=== PATIENT | female | born 1990 | race Caucasian/White ===

== ENCOUNTER 2021-10-01 16:10 | Outpatient (CLI) | payer OTHER, SELFPAY ==
[2021-10-01 16:24] VITALS: BP 115/76; PULSE 98
[2021-10-01 16:30] VITALS: BMI 34.7
[2021-10-01 16:45] VITALS: BP 118/73; PULSE 83
[2021-10-01 17:05] VITALS: BP 125/71; PULSE 85
[2021-10-01 17:20] VITALS: BP 125/71; PULSE 85
== END 2021-10-01 17:15 | disposition home or self-care (01) ==
LOC: OPOB 16:12 → OBGYN 16:13
PROVIDERS: Family Provider Family Medicine; PCP Family Medicine; Visit Provider Family Medicine
DX: O26.899 Other specified pregnancy related conditions, unspecified trimester (principal); Z3A.00 Weeks of gestation of pregnancy not specified; Z91.81 History of falling
CPT/HCPCS: 99211

== ENCOUNTER 2021-10-07 07:45 | Outpatient (CLI) | payer BC, MEDICAID, SELFPAY ==
--- NOTE | 2021-10-07 | US_ITS ---
WS: [id number] ULTRASOUND OB COMPLETE TECHNIQUE: Complete ultrasound. CLINICAL INFORMATION: MULTIGRAVIDA IN SECOND TRIMESTER COMPARISON: None. FINDINGS: Cervix measures 5.1 cm Single interuterine gestation is identified with transverse presentation. Placenta is anterior. Multiple prominent placental lakes visualized. Placenta grade 0. Normal amniotic fluid volume. cardiac activity: 143 BPM. AGA: 21 weeks 0 days JAIMIE by ultrasound: 2021 Estimated weight: 14 ounces BDP: 4.9 cm = 20w6d HC: 18.4 cm = 20w6d AC: 15.8 cm = 20w6d FEMUR LENGTH: 3.5 cm = 21w1d Anatomic survey: Anatomic survey is normal. Normal stomach. Kidneys and bladder are normal. Normal 3 vessel cord. Norm al 3 vessel cord insertion. Normal 4 chamber heart. Normal spine. Intracranial contents are normal. N ormal posterior fossa and cisterna magna. US/US OB >= 14 weeks fetus [id number] IMPRESSION: 1. Single intrauterine with visualized cardiac activity. AGA 21 week s 0 days with JAIMIE February 17, 2022. 2. Placenta is anterior with numerous prominent placental lakes. No evidence o f abruption or previa. 3. presentation is transverse. 4. anatomic survey is normal. 5. Normal amniotic fluid volume.
== END 2021-10-07 07:46 | disposition home or self-care (01) ==
PROVIDERS: PCP Family Medicine; Visit Provider Family Medicine
DX: Z34.82 Encounter for supervision of other normal pregnancy, second trimester (principal); Z3A.21 21 weeks gestation of pregnancy
CPT/HCPCS: 76805

== ENCOUNTER 2022-02-11 20:26 | Outpatient (CLI) | payer BC, MEDICAID, SELFPAY ==
[2022-02-11 20:38] VITALS: BMI 38.3
[2022-02-11 20:45] VITALS: BP 118/73; PULSE 93; RESP 16
[2022-02-11 21:46] VITALS: BP 107/68; PULSE 85
[2022-02-11 22:48] VITALS: BP 93/52; PULSE 82
[2022-02-11 23:16] VITALS: BP 119/87; PULSE 81
[2022-02-11 23:25] VITALS: BP 119/87; PULSE 81; RESP 16
== END 2022-02-11 23:26 | disposition home or self-care (01) ==
LOC: OPOB 20:35 → OBGYN 20:35
PROVIDERS: PCP Family Medicine; Visit Provider Family Medicine
DX: O26.899 Other specified pregnancy related conditions, unspecified trimester (principal); Z3A.00 Weeks of gestation of pregnancy not specified; R10.9 Unspecified abdominal pain
CPT/HCPCS: 59025; 99211

== ENCOUNTER 2022-02-18 21:48 | Inpatient (IN) | payer BC, MEDICAID, SELFPAY ==
[2022-02-18 20:47] VITALS: BP 143/73; PULSE 109
[2022-02-18 21:44] VITALS: RESP 15
[2022-02-18 22:00] VITALS: BMI 39.1
[2022-02-18 22:04] VITALS: BP 121/75; PULSE 93
[2022-02-18 22:10] LABS: Basophils % 0.1 %; Eosinophils # 0.1 10^3/uL (0.0-0.8); Eosinophils % 0.7 %; Hematocrit 30.6 % (37.0-47.0); Hemoglobin 9.5 g/dL (11.5-15.3); Lymphocytes # 1.4 10^3/uL (0.8-4.8); Mean Corpuscular Hemoglobin 25.1 pg (28.0-34.0); Mean Platelet Volume 10.1 fL (7.4-10.4); Monocytes # 0.6 10^3/uL (0.2-0.9); Monocytes % 6.3 %; Neutrophils # 6.96 10^3/uL (1.8-7.7); Neutrophils % 77.1 %; Nucleated Red Blood Cells # 0.1 /100WBC; Nucleated Red Blood Cells % 0.6 %; Platelet Count 244 10^3/cmm (130-400); Red Blood Count 3.78 10^6/uL (4.1-5.3); Red Cell Distribution Width 16.7 % (12.1-15.1)
[2022-02-18] MEDS: miSOPROStol 100 mcg tablet 25 MCG VAGINAL (22:22)
[2022-02-18 22:24] VITALS: BP 121/70; PULSE 95
[2022-02-18] MEDS: dextrose 5%-lactated ringers 1,000 ML 125 ML IV (22:34)
[2022-02-18 22:44] VITALS: BP 120/74; PULSE 91
[2022-02-18 23:04] VITALS: BP 128/78; PULSE 87
[2022-02-19] VITALS (71 sets, daily range): BP systolic 95–142; BP diastolic 50–87; PULSE 65–118; RESP 14–17; TEMP 36.4–36.9; O2SAT 97–100
[2022-02-19] MEDS: lactated ringers 1,000 ML 999 ML IV ×2 (01:57→02:58)
--- NOTE | 2022-02-19 03:43 | ANES.PREANE2 ---
Pre-Anesthetic Assessment Height/Weight: Height 1.55 m Weight 93.894 kg Pulse Resp BP Pulse Ox O2 Del Method 106 H 15 128/75 99 02/19/22 03:40 02/18/22 21:44 02/19/22 03:39 02/19/22 03:40 02/18/22 23:16 Preop Diagnosis: IUP Labor Epidural Familial anesthetic complications: None Was Beta Meaghan taken within 24 hours: N/A Was Clonidine taken within 24 hours: N/A Last intake: liquid: 1900 Solid: 1700 Social No alcohol and No tobacco Exam alert, oriented x 3, clear to auscultation bilaterally and regular rate & rhythm Airway Submandibular: within normal limits Cervical ROM: within normal limits Mallampati: Class III Dentition: full History/ROS No significant history except as noted Pulmonary None reported CV/HEM Anemia None reported Hepatic None reported GI Gastroesophageal Reflux Disease Metabolic Thyroid Disease (Hypothyroid on Levothyxine ) Musc/skel None reported Neuropsych None reported Anesthetic Plan ASA status: 2 Anesthesia: Anesthesia Evaluation, Eval. for regional block and Regional (specify below) (spinal) Risk of > 500 ml blood loss (7ml/kg in children): No Medications/Allergies Home Medications Medication Instructions Recorded Confirmed Last Taken Type levothyroxine 137 mcg tablet 137 mcg PO DAILY 02/11/22 02/18/22 02/17/22 History montelukast 10 mg tablet 10 mg PO DAILY 02/11/22 02/18/22 02/17/22 History (Singulair) vit no.95-ferrous 1 tab PO DAILY 02/11/22 02/18/22 02/17/22 History fumarate 28 mg-folic acid 800 mcg tablet () Allergies Allergy/AdvReac Type Severity Reaction Status Date / Time No Known Allergies Allergy Verified 02/11/22 21:01 Current Medications Generic Name Dose Route Start Last Admin Trade Name Freq PRN Reason Stop Dose Admin Dextrose/Lactated Ringer's 1,000 mls @ 125 mls/hr 02/18/22 21:45 02/18/22 23:16 Dextrose 5%-Lactated Ringers IV 0 mls/hr .Q8H DANG Infusion Ropivacaine 200 mg in 100 mls @ 13 mls/hr 02/18/22 21:45 02/19/22 03:41 Naropin Premix EPIDURAL 11 mls/hr .Q7H42M DANG Administration Lactated Ringer's 1,000 mls @ 999 mls/hr 02/18/22 21:43 02/19/22 02:58 Lactated Ringers IV 999 mls/hr .Q1H1M PRN Administration See label comments PFSH Anesthesia Female Reproductive History : 7 Data Anesthesia : 02/18/22 21:45 Short CBC 02/18/22 Range/Units 21:45 WBC 9.0 (4.0-10.0) 10^3/uL Hgb 9.5 L (11.5-15.3) g/dL Hct 30.6 L (37.0-47.0) % MCV 81.0 (81-99) fl Plt Count 244 (130-400) 10^3/cmm Neut % (Auto) 77.1 % Neut # (Auto) 6.96 (1.8-7.7) 10^3/uL Cardiac Studies: No Data to Display Anesthesia Procedures Epidural Time Out Performed: Yes Consents Signed: Procedure Consent Consent: requested by attending/covering physician, from patient, risks and benefits reviewed and patient agrees to proceed Lumbar Level: L4-L5 Epidural position: sitting Epidural procedure: sterile prep of area, 1% lidocaine to numb the area, 18 g needle, negative for paresthesia passed, neg for paresthesia, test dose given, 1.5% xylocaine 1:200k epi, placed PCEA, no systemic response, sterile dressing applied, L.U.D. no apparent complications and 0.2% Ropiavacaine @ mls/hr (11) Additional Comments: GLENDY 8cm
[2022-02-19] MEDS: oxytocin 30 UNIT/500 ML BAG IV (04:51)
--- NOTE | 2022-02-19 06:54 | PM.OPHPUD ---
Labor & Delivery H&P Update Date of Procedure: February 19, 2022 Date H&P Performed: 02/17/22 Changes to previous documentation: None Admission Diagnosis: Preop diagnosis: IUP Planned procedure: Vaginal delivery Other information: The patient is a 31-year-old 7 para 4-0-2-4 female at 40 weeks estimated gestational age presenting for induction. Her has been relatively unremarkable. She has hypothyroidism. With thyroid supplementation, she has been euthyroid during her . Her blood type is O+. Her antibody screen is negative. She is GBS negative. Her glucose screen was negative. The remainder of her lab infectious disease profile was within normal limits. She has been measuring 2 weeks ahead, and we discussed the risks of induction versus continued waiting. The patient expressed a desire for induction. Related Problem List Diagnoses (1) 40 weeks gestation of : A&P Assessment and plan (1) 40 weeks gestation of : We will proceed with induction. We will start induction with Cytotec 25 mcg per vagina. We will then consider Pitocin and/or amniotomy as needed. This time we anticipated vaginal delivery. Status: Acute
[2022-02-19] MEDS: ceFAZolin 2,000 MG in sodium chloride 0.9% (plus) 50 ML 100 MG IV (07:30)
--- NOTE | 2022-02-19 07:53 | PC.NURSE ---
Blood bank called at this time for 1 unit of PRBC, Blood bank states they will have one unit type and crossed to patient at this time and be done within the hour. BLANCA HUYNH
--- NOTE | 2022-02-19 08:28 | P.PCN_ITS ---
PACU note Narrative: VSS, Good respiratory effort, report to CABLE FERRY OPERATOR Exam: awake
--- NOTE | 2022-02-19 08:28 | PM.PACU ---
PACU note Narrative: VSS, Good respiratory effort, report to CELL COVERER Exam: awake
--- NOTE | 2022-02-19 08:29 | P.OP_ITS ---
Operative Report Date of procedure: February 19, 2022 Pre-op diagnosis: 1. 40-week gestation female 2. Nonreassuring heart tones 3. Excessive uterine bleeding from likely abruption Post-op diagnosis: Same. Probable abruption confirmed Procedure done: Transverse section Specimens removed/disposition: 1. Female with a weight of 9 pounds 2 ounces with Apgars of 3 and 9 2. Placenta with a three-vessel cord delivered intact. Large clot noted on the placenta. Surgeon: Garfield Loyola Estimated blood loss (mL): 800 Estimated blood loss: There was an estimated blood loss of 1500 mL of blood loss prior to surgery Brief History: I was contacted by the nurse caring for the patient concerned that the patient began to pass large clots and that the baby's heart tones had several decelerations. I arrived and confirmed with the nurses concerns. A stat C- section was called. Procedure: The patient was quickly brought back to the operating room where she was prepped and draped in usual sterile fashion. General anesthesia was formed performed. A lower transverse skin incision was then made with a #10 blade. I then dissected down to the underlying subcutaneous tissue until arriving at the prerectal fascia. The fascia was then nicked with the scalpel bilaterally. The fascial incisions were then carried laterally with Smalls scissors. Attention was then turned to the superior aspect of the incision which was grasped with kochers and tented up away from the underlying rectus abdominis muscles. The muscles were then dissected away from the fascia manually, and later with Smalls scissors. The rectus abdominis muscles were then spread manually. The peritoneum was entered manually. Excellent visualization of the uterus was noted. A lower transverse uterine incision was then made with a #10 blade. Upon arriving at the intrauterine cavity, the uterine incision was then extended manually. The infant was noted to be in vertex position. The baby was delivered without difficulty. There was no meconium. There was no nuchal cord. The cord was cut and clamped. The baby was then handed to Dr. Navarrete and the waiting nurses. The placenta was removed intact. The uterus was externalized. The intrauterine cavity was cleansed of any remaining debris. The uterine incision was reapproximated in 2 layers. The first layer was performed with 0 Vicryl in a running locked stitch. The second layer was an imbricating stitch also using 0 Vicryl. The uterus was replaced into the abdomen. The peritoneum was then irrigated with warm saline. I reexamined the uterine incision and found it to be hemostatic. The rectus abdominis muscles were then reapproximated using 0 Vicryl in a running stitch. The fascia was then reapproximated using 0 Vicryl in running stitch. The subcutaneous tissue was then reapproximated using 0 Vicryl in a running stitch. The skin was reapproximated using tony. A sterile dressing was placed. All counts were correct x2. Both the mother and baby were in stable condition. The patient demonstrated signs of hypovolemia including tachycardia and a low blood pressure during the procedure. Due to the large amount of blood loss prior to the procedure that was difficult to quantify, the decision was made to proceed with transfusion of a unit of blood.
[2022-02-19] MEDS: sodium chloride 0.9% (100 ml) 100 ML 50 ML (08:42)
--- NOTE | 2022-02-19 09:05 | PC.NURSE ---
pt to OB-12 from OR via bed. Oriented to room/call light. Discussed plan of clears at 6 hours post op, up to chair 4-6 hours post op.
--- NOTE | 2022-02-19 09:05 | PC.NURSE ---
Patient was assisted in placing infant skin to skin in a modified football hold. This IBCLC assisted patient with hand over hand to latch infant, educating on position related to breast position (nipple to nose), and bringing infant to the breast quickly. Adequate jaw movements were noted, and education on jaw movements was provided.
--- NOTE | 2022-02-19 10:10 | ANE.PACU2 ---
Inpatient post-anesthesia follow up: Airway intact: Yes Vital signs: Temperature 97.7 F Pulse Rate 84 Respiratory Rate 17 Blood Pressure 120/69 Pulse Oximetry 100 Oxygen Delivery Me thod Room Air Oxygen Flow Rate Fraction of Inspir ed Oxygen Hydration adequate: Yes Nausea and vomiting: No Pain level: 6 Mental status: Baseline Additional Comments: 100mcg of fentanyl given after assessing patient pain. patient states pain is better after administration
[2022-02-19] MEDS: docusate sodium 100 mg Capsule PO ×2 (10:30→19:08)
[2022-02-19] MEDS: levothyroxine 137 mcg Tablet PO (10:30)
[2022-02-19] MEDS: acetaminophen 1,000 MG/100 ML PIGGYBACK 400 MG IV (11:20)
[2022-02-19] MEDS: dextrose 5%-lactated ringers 1,000 ML 125 ML IV ×2 (11:20→20:24)
--- NOTE | 2022-02-19 12:17 | PC.NURSE ---
per Dr Loyola, EBL just prior to surgery 1500mL; EBL in surgery 800mL.
[2022-02-19] MEDS: ketorolac 30 mg/mL INJ IVP ×2 (13:51→20:24)
[2022-02-19 14:56] LABS: Hematocrit 28.4 % (37.0-47.0); Hemoglobin 8.7 g/dL (11.5-15.3); Mean Corpuscular HGB Conc 30.6 g/dL (30.0-36.0); Mean Corpuscular Hemoglobin 25.1 pg (28.0-34.0); Mean Corpuscular Volume 81.8 fl (81-99); Platelet Count 200 10^3/cmm (130-400); Red Blood Count 3.47 10^6/uL (4.1-5.3); Red Cell Distribution Width 16.4 % (12.1-15.1); White Blood Count 12.5 10^3/uL (4.0-10.0)
[2022-02-19] MEDS: ondansetron 2 mg/ML SDV 2 mL 4 MG IVP (15:40)
--- NOTE | 2022-02-19 16:00 | PC.NURSE ---
assisted pt up to chair at bedside, tolerated well. complete linen change and gown changed. clear liquids provided.
[2022-02-19] MEDS: ferrous sulfate EC 325 mg Tablet PO (19:08)
[2022-02-20 01:05] VITALS: BP 106/68
[2022-02-20] MEDS: ketorolac 30 mg/mL INJ IVP (02:39)
[2022-02-20 05:06] VITALS: BP 113/73; PULSE 72; RESP 16; TEMP 36.6; TEMP 36.7
[2022-02-20 05:09] LABS: Hematocrit 24.9 % (37.0-47.0); Hemoglobin 7.6 g/dL (11.5-15.3); Mean Corpuscular HGB Conc 30.5 g/dL (30.0-36.0); Mean Corpuscular Volume 81.9 fl (81-99); Mean Platelet Volume 9.9 fL (7.4-10.4); Platelet Count 174 10^3/cmm (130-400); Red Blood Count 3.04 10^6/uL (4.1-5.3); Red Cell Distribution Width 16.9 % (12.1-15.1); White Blood Count 9.9 10^3/uL (4.0-10.0)
--- NOTE | 2022-02-20 07:09 | PM.OBGYPN ---
MANAGER PERFORMANCE IMPROVEMENT Subjective Subjective: Interval history: The patient has had a good night overall. Her bleeding has been minimal. Her urine output is consistently been good. Her vitals have been good including a pulse has been consistently in the 70s. She has been breast-feeding well. Her pain is been well controlled. She passed flatus this morning. Labor: Station: -2 Amniotic Membrane Status: Ruptured Monitor Mode: External Contraction Pattern: Irregular Vitals/I&O/Wt Last Vital Signs Temp 98.0 F 02/20/22 05:06 Pulse 72 02/20/22 05:06 Resp 16 02/20/22 05:06 BP 113/73 02/20/22 05:06 Pulse Ox 100 02/19/22 11:20 O2 Del Method 02/19/22 11:20 02/19/22 02/20/22 02/20/22 22:59 06:59 14:59 Intake Total 1583.333 / 4630.333 Output Total 1100 / 5420 900 / 6320 Balance 483.333 / -789.667 -900 / -1689.667 Weight last 48 hrs Weight 207 lb Physical Exam Narrative: She is in no acute distress Lungs are clear auscultation bilaterally Her heart has a regular rate and rhythm Her fundus is below the umbilicus and firm Her dressing is clean, dry and intact Her extremities have trace edema Urinary Catheter Management: Cano: Cath Placed During This Visit: yes Reason for Continuing Indwelling Catheter: Required Immobilization for Trauma or Surgery or Anesthesia Urinary Catheter Date of Insertion: 02/19/22 Urinary Catheter Time of Insertion: 04:25 Data : 02/20/22 05:00 A&P Assessment and plan (1) 40 weeks gestation of : She is doing quite well. We are advancing her diet. We are going to have her be more mobile today. Her Cano has been removed. Her IV came out, and since her urine output and vitals have been excellent, I am not going to replace unless we see more concerns. (2) Status post : (3) Hemorrhage affecting : Her hemoglobin dropped appropriately today. It is clear she would require transfusion at some point having not done during the surgery given the fact that her hemoglobin posttransfusion is just above 7. Attestations Medical Necessity Statement*: If the patient continues to do well anticipate discharge in the morning. Coding Level of Care Code Acute Motorcycle Assembler for Chg Fwd Diagnoses 40 weeks gestation of Z3A.40 Status post Z98.891 Hemorrhage affecting O46.90
[2022-02-20] MEDS: docusate sodium 100 mg Capsule PO ×2 (08:19→18:01)
[2022-02-20] MEDS: HYDROcodone-acetaminophen 5-325 mg Tablet PO ×3 (08:19→18:01)
[2022-02-20] MEDS: levothyroxine 137 mcg Tablet PO (08:20)
[2022-02-20] MEDS: ferrous sulfate EC 325 mg Tablet PO ×2 (08:20→18:02)
[2022-02-20] MEDS: prenatal vitamin Capsule 1 CAP PO (08:20)
[2022-02-20] MEDS: ibuprofen 800 mg tablet PO ×3 (08:20→20:58)
[2022-02-20 12:00] VITALS: BP 130/72; PULSE 65; RESP 16; TEMP 36.7
--- NOTE | 2022-02-20 16:00 | PC.NURSE ---
Patient called out and stated that I don't feel good and I think I have a fever. Patient was visually uncomfortable and shaking. Patient rated her pain a 9/10 at this time. This nurse obtained vitals, had patient empty bladder, and palpated a soft abdomen. Incision was open to air and no drainage noted. Patient's lochia amount is small. Patient has no problems urinating. This nurse updated Dr. Loyola on patient's vitals, urine output, this nurse's patient assessment previously stated, and patient complaint. Order's received at this time for an additional 25mg dose of hydroxyzine NOW PO and a STAT CBC.
[2022-02-20] MEDS: acetaminophen 325 mg Tablet 650 MG PO (16:03)
[2022-02-20] MEDS: hyDROXYzine 25 mg Capsule 50 MG PO (16:04)
[2022-02-20 16:15] VITALS: BP 109/64; PULSE 120; RESP 22; TEMP 37
[2022-02-20 16:26] VITALS: BP 120/86; PULSE 114; RESP 22
[2022-02-20 16:56] LABS: Basophils % 0.3 %; Eosinophils # 0.1 10^3/uL (0.0-0.8); Eosinophils % 0.6 %; Hematocrit 25.5 % (37.0-47.0); Hemoglobin 7.8 g/dL (11.5-15.3); Lymphocytes % 8.9 %; Mean Corpuscular HGB Conc 30.6 g/dL (30.0-36.0); Mean Corpuscular Hemoglobin 25.2 pg (28.0-34.0); Mean Corpuscular Volume 82.5 fl (81-99); Mean Platelet Volume 9.7 fL (7.4-10.4); Monocytes # 0.6 10^3/uL (0.2-0.9); Monocytes % 5.1 %; Neutrophils # 9.01 10^3/uL (1.8-7.7); Neutrophils % 84.2 %; Nucleated Red Blood Cells % 0.2 %; Platelet Count 218 10^3/cmm (130-400); Red Blood Count 3.09 10^6/uL (4.1-5.3); Red Cell Distribution Width 17.2 % (12.1-15.1); White Blood Count 10.7 10^3/uL (4.0-10.0)
[2022-02-20 23:03] VITALS: BP 113/76; PULSE 84; RESP 17; TEMP 36.7; O2SAT 95
[2022-02-21 04:42] VITALS: BP 113/77; PULSE 82; RESP 18; TEMP 36.6; O2SAT 96
[2022-02-21] MEDS: docusate sodium 100 mg Capsule PO (07:42)
[2022-02-21] MEDS: HYDROcodone-acetaminophen 5-325 mg Tablet PO (07:42)
[2022-02-21] MEDS: prenatal vitamin Capsule 1 CAP PO (07:42)
[2022-02-21] MEDS: ibuprofen 800 mg tablet PO (07:42)
[2022-02-21] MEDS: ferrous sulfate EC 325 mg Tablet PO (07:42)
[2022-02-21] MEDS: levothyroxine 137 mcg Tablet PO (08:23)
--- NOTE | 2022-02-21 09:27 | P.DS_ITS ---
Discharge Providers REVENUE INSPECTOR Date of Admission: 02/18/22 21:48 Date of Discharge: 02/24/22 Attending Provider at Admission: Garfield Loyola MD Attending Provider at Discharge: Garfield Loyola MD Primary Care Provider: Garfield Loyola MD Diagnoses at Discharge Discharge Diagnosis (1) 40 weeks gestation of : Status: Resolved (2) Status post : Status: Resolved (3) Hemorrhage affecting : Status: Resolved Reason for Visit Reason for Visit: INDUCTION Hospital Course Hospital Course The patient presented to the hospital for induction. The patient was placed on Cytotec. An amniotomy was performed and found to have clear fluid. Approximately half hour after the amniotomy, the patient began bleeding with large clots. The heart tones demonstrated multiple deep decelerations. At that was performed. 1 unit of blood was given. The patient did very well . Her bleeding was minimal. She breast-fed well. She did have some moments where her pain was not well controlled, but we will do just her medication accordingly. She passed flatus and tolerated a regular diet Information Peripartum Data: Delivery Method: Physical Exam Narrative: She is in no acute distress Lungs are clear auscultation bilaterally Her heart has a regular rate and rhythm Her fundus is below the umbilicus and firm Her dressing is clean, dry and intact Her extremities have trace edema Urinary Catheter Management: Cano: Cath Placed During This Visit: yes Reason for Continuing Indwelling Catheter: Required Immobilization for Trauma or Surgery or Anesthesia Urinary Catheter Date of Insertion: 02/19/22 Urinary Catheter Time of Insertion: 04:25 Discharge Data Studies Completed and Pending Pending at discharge Category Date Time Status PRBC [Leukocyte Reduced RBC] Routine Lab 02/19/22 07:37 Results Type and Screen Routine Lab 02/19/22 07:37 Results Laboratory Results WBC 10.7 10^3/uL (4.0-10.0) H 02/20/22 16:42 RBC 3.09 10^6/uL (4.1-5.3) L 02/20/22 16:42 Hgb 7.8 g/dL (11.5-15.3) L 02/20/22 16:42 Hct 25.5 % (37.0-47.0) L 02/20/22 16:42 MCV 82.5 fl (81-99) 02/20/22 16:42 MCH 25.2 pg (28.0-34.0) L 02/20/22 16:42 MCHC 30.6 g/dL (30.0-36.0) 02/20/22 16:42 RDW 17.2 % (12.1-15.1) H 02/20/22 16:42 Plt Count 218 10^3/cmm (130-400) 02/20/22 16:42 MPV 9.7 fL (7.4-10.4) 02/20/22 16:42 Neut % (Auto) 84.2 % 02/20/22 16:42 Lymph % (Auto) 8.9 % 02/20/22 16:42 Garza % (Auto) 5.1 % 02/20/22 16:42 Eos % (Auto) 0.6 % 02/20/22 16:42 Baso % (Auto) 0.3 % 02/20/22 16:42 Neut # (Auto) 9.01 10^3/uL (1.8-7.7) H 02/20/22 16:42 Lymph # (Auto) 1.0 10^3/uL (0.8-4.8) 02/20/22 16:42 Garza # (Auto) 0.6 10^3/uL (0.2-0.9) 02/20/22 16:42 Eos # (Auto) 0.1 10^3/uL (0.0-0.8) 02/20/22 16:42 Baso # (Auto) 0.0 10^3/uL (0.0-0.1) 02/20/22 16:42 Nucleated RBC % (auto) 0.2 % 02/20/22 16:42 Nucleated RBCs # 0.0 /100WBC 02/20/22 16:42 Blood Type O Positive 02/18/22 21:45 Rho(D) Type Positive 02/18/22 21:45 Antibody Screen Negative 02/18/22 21:45 Crossmatch See Detail 02/18/22 21:45 Vitals Last Vital Signs Temp 97.8 F 02/21/22 04:42 Pulse 82 02/21/22 04:42 Resp 18 02/21/22 04:42 BP 113/77 02/21/22 04:42 Pulse Ox 96 02/21/22 04:42 O2 Del Method 02/21/22 04:42 Discharge Plan Discharge Patient Disposition: Home Condition: Stable Prescriptions: New ibuprofen 800 mg Tablet 800 mg PO TID Qty: 45 0RF hydrocodone-acetaminophen 5-325 mg Tablet 1 - 2 tab PO Q4H PRN (Reason: Moderate To Severe Pain) Qty: 28 0RF docusate sodium 100 mg Capsule 100 mg PO BID Qty: 14 0RF Continued levothyroxine 137 mcg Tablet 137 mcg PO DAILY PNV cmb#95-ferrous fumarate-FA [] 28 mg iron- 800 mcg Tablet 1 tab PO DAILY Discontinued montelukast [Singulair] 10 mg Tablet 10 mg PO DAILY Discharge Orders: Discharge Order (Routine); Ordered 02/21/22 Ordered By: Garfield Loyola Referrals: Garfield Loyola MD [Primary Care Provider] - 4-7 days Discharge Diet: Usual diet Discharge Activity: Limit activity as instructed Patient Instructions: Depression (DC), Bleeding (DC), Preeclampsia and Eclampsia After Delivery (GEN), Hemorrhage (DC), OB - Mariah, OB Discharge Report, OB Food/Drug Interaction Guide, OB Care at Home, Opioid Safety, OB Home Care Discharge Attestations REVENUE INSPECTOR Time Spent in Discharge Care*: less than 30 min Coding Level of Care Code Acute Temple Meat Cutter for Chg Fwd Diagnoses 40 weeks gestation of Z3A.40 Status post Z98.891 Hemorrhage affecting O46.90
[2022-02-21 10:02] VITALS: BP 118/69; PULSE 98; RESP 16; TEMP 36.9; O2SAT 99
[2022-02-21 10:51] VITALS: BP 118/69; PULSE 98; RESP 16; TEMP 36.9; O2SAT 99
== END 2022-02-21 10:51 | disposition home or self-care (01) | DRG 788 ==
LOC: OBGYN 23:05 → OPOB 03-01 08:24
PROVIDERS: Admitting Provider Family Medicine; PCP Family Medicine; Visit Provider Family Medicine
PROC: 10D00Z1 Extraction of Products of Conception, Low, Open Approach (ICD-10-PCS; CPT 59514; principal; 2022-02-19 07:15)
DX: O45.93 Premature separation of placenta, unspecified, third trimester (principal); O99.344 Other mental disorders complicating childbirth; F41.9 Anxiety disorder, unspecified; O48.0 Post-term pregnancy; Z3A.40 40 weeks gestation of pregnancy; O99.284 Endocrine, nutritional and metabolic diseases complicating childbirth; E03.9 Hypothyroidism, unspecified; O76 Abnormality in fetal heart rate and rhythm complicating labor and delivery; Z37.0 Single live birth
CPT/HCPCS: 12345; 36415; 36430; 51702; 59025; 85025; 85027; 86850; 86900; 86920; 90471; 90686; 96374; 96376; 98960; J0330; J1885; J2274; J2370; J2405; J2704; J2795; J3010; J7030; P9016

== ENCOUNTER 2022-07-09 18:48 | Emergency (ER) | payer BC, MEDICAID, SELFPAY ==
[2022-07-09 18:59] VITALS: BP 160/100; PULSE 81; RESP 18; TEMP 36.7; O2SAT 98
--- NOTE | 2022-07-09 20:15 | XRR_ITS ---
PROCEDURE INFORMATION: Exam: XR Chest Exam date and time: 07/09/2022 8:20 PM Age: 31 years old Clinical indication: Pain; Chest pressure; Additional info: HTN, chest pressure TECHNIQUE: Imaging protocol: Radiologic exam of the chest. Views: 1 view. COMPARISON: No relevant prior studies available. FINDINGS: Lungs: Visualized portions of the lungs are clear. Pleural spaces: Unremarkable. No pleural effusion. No pneumothorax. Heart/Mediastinum: Heart is within normal limits of size. Bones/joints: There is mild scoliosis thoracic spine concave to the left. XR/XR chest 1V portable [id number] IMPRESSION: No acute infiltrate.
--- NOTE | 2022-07-09 20:15 | ED_ITS ---
Documented by User: JACEY Ruvalcaba 07/09/22 22:35 HPI - Headache General: Chief Complaint: Headache Stated Complaint: high bp Time Seen by Provider: 07/09/22 20:08 History of Present Illness: 31-year-old female comes in today for persistent headache x2 weeks. Patient was seen at primary care office and was noted to have elevated blood pressure in the 140s. Primary care provider thought that the patient probably had elevated blood pressure causing her headache. She was started on Maxide for her blood pressure. Patient taken 1 dose of it. Since then patient felt like she had some chest discomfort and numbness in her right arm which prompted become more concerned and she came to the ER for evaluation. Patient has no history of hypertension or migraine headaches. Patient does take levothyroxine for hypothyroidism and control. Patient denies any cigarette smoking alcohol or drugs. Patient appears nontoxic. Patient appears in mild to no pain. Associated symptoms: Reports chest pain (Discomfort); Deny fever(s), nausea, rash or vomiting Review of Systems Const: Denies: fever(s) Eyes: Denies: change in vision ENMT: Denies: throat pain Card: Reports: chest pain (Discomfort) Resp: Denies: dyspnea GI: Denies: nausea or vomiting : Denies: difficulty voiding Musc: Denies: neck pain or back pain Skin/Breast: Denies: rash Neuro: Reports: headache(s) and dizziness (Lightheaded) Psych: Denies: depression PFS ED PFSH: Medical History Abscessed tooth Physical Exam Const: COMMON NORMALS: alert HENMT: COMMON NORMALS: normocephalic, TM's normal bilaterally and Normal external nose present HEAD & SCALP: normocephalic FACE & SINUS: no Facial tenderness on exam of face and sinuses NOSE: Normal external nose present TYMPANIC MEMBRANE: TM's normal bilaterally THROAT: posterior oropharynx abnormal cobblestoning (Mild) Neck/C-Spine: CERVICAL SPINE: Yes cervical ROM normal, No Cervical spine tenderness and No Paracervical muscle tenderness Resp: COMMON NORMALS: normal respiratory effort and clear to auscultation bilaterally AUSCULTATION: clear to auscultation bilaterally Cardio: COMMON NORMALS: regular rate and regular rhythm RATE: regular rate RHYTHM: regular rhythm Extremity: COMMON NORMALS: full ROM and no pedal edema Neuro: SENSORIUM/ORIENTATION: Yes alert Skin: COMMON NORMALS: turgor normal GENERAL SKIN EXAM: turgor normal Course Vital Signs: Vital signs: Vital Signs Temperature 98.1 F 07/09/22 18:59 Pulse Rate 88 07/09/22 22:35 Respiratory Rate 16 07/09/22 22:35 Blood Pressure 131/91 07/09/22 22:35 Pulse Oximetry 98 07/09/22 18:59 MDM - Headache Medical Decision Making Patient comes in today for complaints of persistent headache x2 weeks, lightheadedness, and numbness in the right arm. Patient was recently started on medications for elevated blood pressure. Patient appears nontoxic. Patient appears in mild to no pain. Vital signs note a blood pressure in the 160s systolic. Heart rates regular. Lung sounds are clear. No edema is noted. Differential diagnosis includes but not limited to migraine headache, hypertensive emergency, essential hypertension, sinusitis, anxiety. CBC and CMP were unremarkable. Patient did note to have some small corpuscle size probably suggestive of some mild iron deficiency. TSH was elevated in the 30s. CT of the head indicated no abnormalities. Patient was treated with Reglan, ketorolac, dexamethasone for headache with good results. Recommend continuing medication for blood pressure and follow-up with primary care. Patient stated understanding agreed to plan. Lab Data 07/09/22 20:28 07/09/22 20:28 Radiology Impressions Chest X-Ray 07/09/22 20:15 IMPRESSION: No acute infiltrate. Head CT 07/09/22 20:15 IMPRESSION: No acute intracranial abnormality. Laboratory Results WBC 7.5 10^3/uL (4.0-10.0) 07/09/22 20:28 RBC 5.63 10^6/uL (4.1-5.3) H 07/09/22 20:28 Hgb 12.1 g/dL (11.5-15.3) 07/09/22 20:28 Hct 41.3 % (37.0-47.0) 07/09/22 20:28 MCV 73.4 fl (81-99) L 07/09/22 20: MCH 21.5 pg (28.0-34.0) L 07/09/22 20:28 MCHC 29.3 g/dL (30.0-36.0) L 07/09/22 20: RDW 16.3 % (12.1-15.1) H 07/09/22 20: Plt Count 429 10^3/cmm (130-400) H 07/09/22 20: MPV 9.3 fL (7.4-10.4) 07/09/22 20: Neut % (Auto) 55.3 % 07/09/22 20: Lymph % (Auto) 36.0 % 07/09/22 20: [place] % (Auto) 5.6 % 07/09/22 20: Eos % (Auto) 2.1 % 07/09/22 20: Baso % (Auto) 0.9 % 07/09/22: Neut # (Auto) 4.15 10^3/uL (1.8-7.7) 07/09/22: Lymph # (Auto) 2.7 10^3/uL (0.8-4.8) 07/09/22 20: [place] # (Auto) 0.4 10^3/uL (0.2-0.9) 07/09/22 20: Eos # (Auto) 0.2 10^3/uL (0.0-0.8) 07/09/22 20: Baso # (Auto) 0.1 10^3/uL (0.0-0.1) 07/09/22 20: Nucleated RBC % (auto) 0 % 07/09/22 20: Nucleated RBCs # 0.0 /100WBC 07/09/22 20: ESR 27 mm/hr (0-15) H 07/09/22 20: Sodium 136 mmol/L (136-145) 07/09/22 20: Potassium 3.8 mmol/L (3.5-5.1) 07/09/22 20: Chloride 99 mmol/L (98-107) 07/09/22 20: Carbon Dioxide 25 mmol/L (22-29) 07/09/22 20: Anion Gap 15.8 (5-19) 07/09/22 20: BUN 11 mg/dL (6-20) 07/09/22 20: Creatinine 0.7 mg/dL (0.5-0.9) 07/09/22 20:28 GFR Calculation 98.9 mL/min (90-130) 07/09/22 20: Glucose 90 mg/dL (65-115) 07/09/22 20: Calculated Osmolality 281 mOsm/kg (285-295) L 07/09/22 20: Calcium 9.8 mg/dL (8.5-10.5) 07/09/22 20: Total Bilirubin 0.2 mg/dL (0.15-1.2) 07/09/22 20: AST 19 U/L (0-32) 07/09/22 20:28 ALT < 5 U/L (0-33) 07/09/22 20: Alkaline Phosphatase 118 U/L (35-105) H 07/09/22 20:28 Troponin T Gen 5 ng/L 6 ng/L (0-10) 07/09/22 20: C-Reactive Protein 4.5 mg/L (0.0-4.9) 07/09/22 20: NT-Pro-B Natriuret Pep 36 pg/mL (0-125) 07/09/22 20:28 Total Protein 8.3 g/dL (6.6-8.7) 07/09/22 20: Albumin 4.7 g/dL (3.5-5.2) 07/09/22 20: Globulin 3.6 g/dL (1.3-4.6) 07/09/22 20: TSH 36.50 uIU/mL (0.27-4.20) H 07/09/22 20:28 HCG, Qual Negative (Negative) 07/09/22 20:28 Urine Color Colorless (Yellow) 07/09/22 20:37 Urine Appearance Clear (CLEAR) 07/09/22 20:37 Urine pH 7 (5-7) 07/09/22 20:37 Ur Specific Stuart 1.010 (1.005-1.030) 07/09/22 20:37 Urine Protein Neg (Negative) 07/09/22 20:37 Urine Glucose (UA) Norm (Normal) 07/09/22 20:37 Urine Ketones Negative (Negative) 07/09/22 20:37 Urine Blood 3+ (Negative) H 07/09/22 20:37 Urine Nitrate Negative (Negative) 07/09/22 20:37 Urine Bilirubin Neg (Negative) 07/09/22 20:37 Urine Urobilinogen Neg mg/dL (Negative) 07/09/22 20:37 Ur Leukocyte Esterase Negative (Negative) 07/09/22 20:37 Urine RBC 10-15 /hpf (0-2) H 07/09/22 20:37 Urine WBC 0-4 /hpf (0-5) H 07/09/22 20:37 Ur Squamous Epith Cells 10-15 /hpf (0-5) H 07/09/22 20:37 Amorphous Sediment Not Reportable 07/09/22 20:37 Urine Bacteria None /hpf (NONE) 07/09/22 20:37 Urine Mucus Trace /hpf 07/09/22 20:37 Discharge Plan Discharge Patient Disposition: Home Clinical Impression: Headache Qualifiers: Headache type: unspecified Headache chronicity pattern: unspecified pattern Intractability: not intractable Qualified Code(s): R51.9 - Headache, unspecified Hypertension Qualifiers: Hypertension type: unspecified Qualified Code(s): I10 - Essential (primary) hypertension Condition: Stable Prescriptions: No Action amoxicillin 875 mg tablet 875 mg PO BID Qty: 20 0RF amoxicillin-pot clavulanate 875-125 mg tablet 1 tab PO BID 7 Days Qty: 14 0RF levothyroxine 137 mcg Tablet 137 mcg PO DAILY PNV cmb#95-ferrous fumarate-FA [] 28 mg iron- 800 mcg Tablet 1 tab PO DAILY docusate sodium 100 mg Capsule 100 mg PO BID Qty: 14 0RF Discharge Orders: Discharge ED (Routine); Ordered 07/09/22 Ordered By: Darren Martin Referrals: Garfield Loyola MD [Primary Care Provider] - Discharge Diet: Usual diet Discharge Activity: Increase activity as tolerated Patient Instructions: DASH Eating Plan (ED), Hypertension (ED) Activity Restrictions/Additional Instructions: Continue routine medications as directed. Follow-up with primary care regarding abnormalities with thyroid level and recheck on blood pressure. Follow-up with primary care for further evaluation. Return to ED for new concerns. Coding Level of Care Code ED Excellence Consultant for Chg Fwd Documented by User: Peng Lentz DO 07/09/22 23:15 HPI - Headache General: Chief Complaint: Headache Stated Complaint: high bp Time Seen by Provider: 07/09/22 20:08 [facility] ED PFSH: Medical History Abscessed tooth Course Vital Signs: Vital signs: Vital Signs Temperature 98.1 F 07/09/22 18:59 Pulse Rate 88 07/09/22 22:35 Respiratory Rate 16 07/09/22 22:35 Blood Pressure 131/91 07/09/22 22:35 Pulse Oximetry 98 07/09/22 18:59 MDM - Headache Medical Decision Making Patient comes in today for complaints of persistent headache x2 weeks, lightheadedness, and numbness in the right arm. Patient was recently started on medications for elevated blood pressure. Patient appears nontoxic. Patient appears in mild to no pain. Vital signs note a blood pressure in the 160s systolic. Heart rates regular. Lung sounds are clear. No edema is noted. Differential diagnosis includes but not limited to migraine headache, hypertensive emergency, essential hypertension, sinusitis, anxiety. CBC and CMP were unremarkable. Patient did note to have some small corpuscle size probably suggestive of some mild iron deficiency. TSH was elevated in the 30s. CT of the head indicated no abnormalities. Patient was treated with Reglan, ketorolac, dexamethasone for headache with good results. Recommend continuing medication for blood pressure and follow-up with primary care. Patient stated understanding agreed to plan. This patient was originally seen by JACEY Saunders.? I agree with his history, evaluation, and treatment. Lab Data 07/09/22 20:28 07/09/22 20:28 Radiology Impressions Chest X-Ray 07/09/22 20:15 IMPRESSION: No acute infiltrate. Head CT 07/09/22 20:15 IMPRESSION: No acute intracranial abnormality. Laboratory Results WBC 7.5 10^3/uL (4.0-10.0) 07/09/22 20:28 RBC 5.63 10^6/uL (4.1-5.3) H 07/09/22 20:28 Hgb 12.1 g/dL (11.5-15.3) 07/09/22 20: Hct 41.3 % (37.0-47.0) 07/09/22 20: MCV 73.4 fl (81-99) L 07/09/22 20: MCH 21.5 pg (28.0-34.0) L 07/09/22 20: MCHC 29.3 g/dL (30.0-36.0) L 07/09/22 20: RDW 16.3 % (12.1-15.1) H 07/09/22 20: Plt Count 429 10^3/cmm (130-400) H 07/09/22 20: MPV 9.3 fL (7.4-10.4) 07/09/22 20: Neut % (Auto) 55.3 % 07/09/22 20: Lymph % (Auto) 36.0 % 07/09/22: [place] % (Auto) 5.6 % 07/09/22: Eos % (Auto) 2.1 % 07/09/22 20: Baso % (Auto) 0.9 % 07/09/22: Neut # (Auto) 4.15 10^3/uL (1.8-7.7) 07/09/22: Lymph # (Auto) 2.7 10^3/uL (0.8-4.8) 07/09/22: [place] # (Auto) 0.4 10^3/uL (0.2-0.9) 07/09/22: Eos # (Auto) 0.2 10^3/uL (0.0-0.8) 07/09/22 20: Baso # (Auto) 0.1 10^3/uL (0.0-0.1) 07/09/22: Nucleated RBC % (auto) 0 % 07/09/22: Nucleated RBCs # 0.0 /100WBC 07/09/22 20: ESR 27 mm/hr (0-15) H 07/09/22 20: Sodium 136 mmol/L (136-145) 07/09/22 20: Potassium 3.8 mmol/L (3.5-5.1) 07/09/22 20:28 Chloride 99 mmol/L (98-107) 07/09/22 20:28 Carbon Dioxide 25 mmol/L (22-29) 07/09/22 20: Anion Gap 15.8 (5-19) 07/09/22 20:28 BUN 11 mg/dL (6-20) 07/09/22 20: Creatinine 0.7 mg/dL (0.5-0.9) 07/09/22 20: GFR Calculation 98.9 mL/min (90-130) 07/09/22 20: Glucose 90 mg/dL (65-115) 07/09/22 20: Calculated Osmolality 281 mOsm/kg (285-295) L 07/09/22 20: Calcium 9.8 mg/dL (8.5-10.5) 07/09/22 20: Total Bilirubin 0.2 mg/dL (0.15-1.2) 07/09/22 20: AST 19 U/L (0-32) 07/09/22 20:28 ALT < 5 U/L (0-33) 07/09/22 20: Alkaline Phosphatase 118 U/L (35-105) H 07/09/22 20:28 Troponin T Gen 5 ng/L 6 ng/L (0-10) 07/09/22 20: C-Reactive Protein 4.5 mg/L (0.0-4.9) 07/09/22 20: NT-Pro-B Natriuret Pep 36 pg/mL (0-125) 07/09/22 20:28 Total Protein 8.3 g/dL (6.6-8.7) 07/09/22 20: Albumin 4.7 g/dL (3.5-5.2) 07/09/22 20: Globulin 3.6 g/dL (1.3-4.6) 07/09/22 20: TSH 36.50 uIU/mL (0.27-4.20) H 07/09/22 20:28 HCG, Qual Negative (Negative) 07/09/22 20: Urine Color Colorless (Yellow) 07/09/22 20:37 Urine Appearance Clear (CLEAR) 07/09/22 20:37 Urine pH 7 (5-7) 07/09/22 20:37 Ur Specific Stuart 1.010 (1.005-1.030) 07/09/22 20:37 Urine Protein Neg (Negative) 07/09/22 20:37 Urine Glucose (UA) Norm (Normal) 07/09/22 20:37 Urine Ketones Negative (Negative) 07/09/22 20:37 Urine Blood 3+ (Negative) H 07/09/22 20:37 Urine Nitrate Negative (Negative) 07/09/22 20:37 Urine Bilirubin Neg (Negative) 07/09/22 20:37 Urine Urobilinogen Neg mg/dL (Negative) 07/09/22 20:37 Ur Leukocyte Esterase Negative (Negative) 07/09/22 20:37 Urine RBC 10-15 /hpf (0-2) H 07/09/22 20:37 Urine WBC 0-4 /hpf (0-5) H 07/09/22 20:37 Ur Squamous Epith Cells 10-15 /hpf (0-5) H 07/09/22 20:37 Amorphous Sediment Not Reportable 07/09/22 20:37 Urine Bacteria None /hpf (NONE) 07/09/22 20:37 Urine Mucus Trace /hpf 07/09/22 20:37 Discharge Plan Discharge Patient Disposition: Home Clinical Impression: Headache Qualifiers: Headache type: unspecified Headache chronicity pattern: unspecified pattern Intractability: not intractable Qualified Code(s): R51.9 - Headache, unspecified Hypertension Qualifiers: Hypertension type: unspecified Qualified Code(s): I10 - Essential (primary) hypertension Condition: Stable Prescriptions: No Action amoxicillin 875 mg tablet 875 mg PO BID Qty: 20 0RF amoxicillin-pot clavulanate 875-125 mg tablet 1 tab PO BID 7 Days Qty: 14 0RF levothyroxine 137 mcg Tablet 137 mcg PO DAILY PNV cmb#95-ferrous fumarate-FA [] 28 mg iron- 800 mcg Tablet 1 tab PO DAILY docusate sodium 100 mg Capsule 100 mg PO BID Qty: 14 0RF Discharge Orders: Discharge ED (Routine); Ordered 07/09/22 Ordered By: Darren Martin Referrals: Garfield Loyola MD [Primary Care Provider] - Discharge Diet: Usual diet Discharge Activity: Increase activity as tolerated Patient Instructions: DASH Eating Plan (ED), Hypertension (ED) Activity Restrictions/Additional Instructions: Continue routine medications as directed. Follow-up with primary care regarding abnormalities with thyroid level and recheck on blood pressure. Follow-up with primary care for further evaluation. Return to ED for new concerns. Coding Level of Care Code ED Excellence Consultant for Pita Brar
--- NOTE | 2022-07-09 20:15 | CTR_ITS ---
PROCEDURE INFORMATION: Exam: CT Head Without Contrast Exam date and time: 07/09/2022 8:30 PM Age: 31 years old Clinical indication: Pain; Headache; Other: W/htn; Additional info: Persistent headache 2 weeks TECHNIQUE: Imaging protocol: Computed tomography of the head without contrast. Radiation optimization: All CT scans at this facility use at least one of these dose optimization techniques: automated exposure control; mA and/or kV adjustment per patient size (includes targeted exams where dose is matched to clinical indication); or iterative reconstruction. REPORTING DATA: Count of CT and Cardiac NM exams in prior 12 months: This patient has received 0 known CTs and 0 known cardiac nuclear medicine studies in the 12 months prior to the current study. COMPARISON: CT head wo con* [id number] 12/17/2015 7:59 PM RADIATION DOSE METRICS: Total DLP (mGy-cm): 1039.98 FINDINGS: Brain: Normal. No hemorrhage. Unremarkable white matter. No mass effect. Cerebral ventricles: No ventriculomegaly. Paranasal sinuses: Visualized sinuses are unremarkable. No fluid levels. Mastoid air cells: Visualized mastoid air cells are well aerated. Bones/joints: Unremarkable. No acute fracture. Soft tissues: Unremarkable. CT/CT head wo con* [id number] IMPRESSION: No acute intracranial abnormality.
[2022-07-09 20:35] LABS: Basophils # 0.1 10^3/uL (0.0-0.1); Basophils % 0.9 %; Eosinophils # 0.2 10^3/uL (0.0-0.8); Eosinophils % 2.1 %; Hematocrit 41.3 % (37.0-47.0); Hemoglobin 12.1 g/dL (11.5-15.3); Lymphocytes # 2.7 10^3/uL (0.8-4.8); Mean Corpuscular HGB Conc 29.3 g/dL (30.0-36.0); Mean Corpuscular Hemoglobin 21.5 pg (28.0-34.0); Mean Corpuscular Volume 73.4 fl (81-99); Mean Platelet Volume 9.3 fL (7.4-10.4); Monocytes # 0.4 10^3/uL (0.2-0.9); Monocytes % 5.6 %; Neutrophils # 4.15 10^3/uL (1.8-7.7); Neutrophils % 55.3 %; Nucleated Red Blood Cells % 0 %; Platelet Count 429 10^3/cmm (130-400); Red Blood Count 5.63 10^6/uL (4.1-5.3); Red Cell Distribution Width 16.3 % (12.1-15.1); White Blood Count 7.5 10^3/uL (4.0-10.0)
--- NOTE | 2022-07-09 20:44 | ECG_ITS ---
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 Measurements Intervals [place] Rate: 69 P: 47 WI: 158 QRS: 19 QRSD: 88 T: 41 QT: 378 QTc: 405 Interpretive Statements SINUS RHYTHM WITH SINUS ARRHYTHMIA POSSIBLE ANTERIOR MYOCARDIAL INFARCTION , OF INDETERMINATE AGE [30 ms Q WAVE IN V3/V4, OR R < 0.2 mV IN V4] Compared to ECG 11/26/2017 22:52:13 No significant changes Electronically Signed On 07-09-2022 21:48:16 LINEN CONTROLLER by Adriana Castaneda M.D. [id number]
[2022-07-09 20:51] LABS: Erythrocyte Sedimentation Rate 27 mm/hr (0-15); HCG, Serum Qual Negative (Negative)
[2022-07-09 20:57] LABS: Troponin T (5th) Once 6 ng/L (0-10)
[2022-07-09 21:08] LABS: Alanine Aminotransferase < 5 U/L (0-33); Albumin Level 4.7 g/dL (3.5-5.2); Alkaline Phosphatase 118 U/L (35-105); Anion Gap 15.8 (5-19); Aspartate Amino Transferase 19 U/L (0-32); Blood Urea Nitrogen 11 mg/dL (6-20); C Reactive Protein 4.5 mg/L (0.0-4.9); Calcium 9.8 mg/dL (8.5-10.5); Carbon Dioxide 25 mmol/L (22-29); Chloride 99 mmol/L (98-107); Globulin 3.6 g/dL (1.3-4.6); Glomerular Filtration Rate 98.9 mL/min (90-130); Glucose 90 mg/dL (65-115); NT Pro B Type Natriuretic Pept 36 pg/mL (0-125); Osmolality Calculated 281 mOsm/kg (285-295); Potassium 3.8 mmol/L (3.5-5.1); Sodium 136 mmol/L (136-145); Total Bilirubin 0.2 mg/dL (0.15-1.2); Total Protein 8.3 g/dL (6.6-8.7)
[2022-07-09 21:31] VITALS: BP 123/98; PULSE 63; RESP 14
[2022-07-09] MEDS: dexamethasone 10 mg/mL INJ 6 MG IVP (21:49)
[2022-07-09] MEDS: metoclopramide 5 mg/mL SDV 2 mL 10 MG IVP (21:49)
[2022-07-09] MEDS: ketorolac 30 mg/mL INJ 15 MG IVP (21:50)
[2022-07-09 22:35] VITALS: BP 131/91; PULSE 88; RESP 16
[2022-07-09 22:47] LABS: Add Urine Microscopic? YES; Bilirubin Urine Neg (Negative); Blood Urine 3+ (Negative); Glucose Urine UA Norm (Normal); Ketones Urine Negative (Negative); Leukocyte Esterase Urine Negative (Negative); Nitrate Urine Negative (Negative); Protein Urine Neg (Negative); Urine Appearance Clear (CLEAR); Urine Color Colorless (Yellow); Urobilinogen Urine Neg (Negative); pH Urine 7 (5-7)
[2022-07-09 23:05] LABS: Add Urine Culture? No; Mucus Urine TRACE /hpf; WBC Urine 0-4 /hpf (0-5)
== END 2022-07-09 22:37 | disposition home or self-care (01) ==
PROVIDERS: Emergency Provider Nurse Practitioner Family; PCP Family Medicine
DX: R51.9 Headache, unspecified (principal); I10 Essential (primary) hypertension
CPT/HCPCS: 70450; 71045; 80053; 81001; 83880; 84443; 84484; 84703; 85025; 85651; 86140; 93005; 96374; 96375; 99285; J1100; J1885; J2765

== ENCOUNTER → 2023-05-15 11:32 | Outpatient (BNVA) | payer BC, MEDICAID, SELFPAY | PROVIDERS: PCP Family Medicine; Visit Provider Registered Nurse Neonatal Intensive Care | DX: R05.9 Cough, unspecified (principal) | CPT/HCPCS: 87400 ==

== ENCOUNTER → 2023-11-27 10:39 | Outpatient (BNVA) | payer BC, MEDICAID, SELFPAY | PROVIDERS: PCP Family Medicine; Visit Provider Registered Nurse Neonatal Intensive Care | DX: J02.9 Acute pharyngitis, unspecified (principal); R52 Pain, unspecified; J06.9 Acute upper respiratory infection, unspecified | CPT/HCPCS: 87426; 87880 ==

== ENCOUNTER 2024-08-20 06:58 | Day surgery (SDC) | payer MEDICAID, SELFPAY ==
[2024-08-21] VITALS (10 sets, daily range): BP systolic 94–129; BP diastolic 51–83; PULSE 78–110; RESP 13–22; TEMP 36.1–36.6; O2SAT 95–100; BMI 34.9
--- NOTE | 2024-08-21 02:10 | W.PM.OPSFHP ---
Same Day Surgery H&P Indication for Procedure/HPI DATE OF PROCEDURE: August 21, 2024 CHIEF COMPLAINT/INDICATIONFOR SURGICAL PROCEDURE: desires permanent sterilization wants removal of intrauterine device PREOP DIAGNOSIS: desires permanent sterilization; wants removal of intrauterine device PLANNED PROCEDURE: Operation Date: 08/21/24 08:10 Proposed Procedures p Laparoscopic bilateral partial salpingectomy [id number], Z30.2(Bilateral) - Alex Vyas MD s Removal Of Interuterine Device(Not Applicable) - Alex Vyas MD 33 y.o. A3 desires permanent sterilization and wants removal of intrauterine device Medications/Allergies* Home Medications ?Medication ?Instructions ?Recorded ?Confirmed ?Type levothyroxine 137 mcg tablet 137 mcg PO DAILY 02/11/22 08/20/24 History vit no.95-ferrous 1 tab PO DAILY 02/11/22 08/20/24 History fumarate 28 mg-folic acid 800 mcg tablet () triamterene 50 mg capsule 50 mg PO DAILY 05/15/23 08/20/24 History Allergies/Adverse Reactions Allergy/AdvReac Type Severity Reaction Status Date / Time No Known Allergies Allergy Verified 05/30/24 12:08 Pertinent History/Comorbid Conditions* Medical History (Updated 06/30/24 @ 00:44 by Alex Vyas MD) Abscessed tooth Family History (Updated 05/30/24 @ 13:20 by Annamaria Gomez RN) Diabetes Grandmother Hypertension Grandmother Grandfather Social History Smoking and tobacco/nicotine status: never used tobacco/nicotine Pertinent Exam Findings alert, oriented x 3, clear to auscultation bilaterally and regular rate & rhythm Recommendations Surgery/Procedure today Coding Level of Care Code Acute Code for Chg Fwd
[2024-08-21] MEDS: sodium chloride 0.9% 1,000 ML 30 ML IV (07:15)
[2024-08-21 07:18] LABS: OR HCG Qualitative Urine Negative (Negative)
--- NOTE | 2024-08-21 07:22 | ANES.PREANE2 ---
Pre-Anesthetic Assessment Height/Weight: Height 1.55 m Weight 83.915 kg Temp Pulse Resp BP Pulse Ox O2 Del Method 97.3 F L 82 18 129/83 100 Room Air 08/21/24 07:00 08/21/24 07:00 08/21/24 07:00 08/21/24 07:00 08/21/24 07:00 08/21/24 07:00 Preop Diagnosis: desires permanent sterilization; wants removal of intrauterine device Operation Date: 08/21/24 08:10 Proposed Procedures p Laparoscopic bilateral partial salpingectomy [id number], Z30.2(Bilateral) - Alex Vyas MD s Removal Of Interuterine Device(Not Applicable) - Alex Vyas MD Last intake: Intake Last Liquid Date 08/20/24 Last Liquid Time 20:30 Last Solid Date 08/20/24 Last Solid Time 20:30 Social No alcohol and No tobacco Exam alert, oriented x 3, clear to auscultation bilaterally and regular rate & rhythm Airway Submandibular: Other (marginal/receeding ) Cervical ROM: within normal limits Mallampati: Class III History/ROS No significant history except as noted Metabolic Thyroid Disease Anesthetic Plan ASA status: 2 Anesthesia: General Medications/Allergies Home Medications ?Medication ?Instructions ?Recorded ?Confirmed ?Last Taken ?Type levothyroxine 137 mcg tablet 137 mcg PO DAILY 02/11/22 08/20/24 08/20/24 History vit no.95-ferrous 1 tab PO DAILY 02/11/22 08/20/24 08/20/24 History fumarate 28 mg-folic acid 800 mcg tablet () triamterene 50 mg capsule 50 mg PO DAILY 05/15/23 08/20/24 08/20/24 History Allergies Allergy/AdvReac Type Severity Reaction Status Date / Time No Known Allergies Allergy Verified 05/30/24 12:08 [facility] Anesthesia Medical History Abscessed tooth Family History (Updated 05/30/24 @ 13:20 by Annamaria Gomez RN) Grandmother Hypertension Diabetes Grandfather Hypertension Social History Smoking and tobacco/nicotine status: never used tobacco/nicotine Data Anesthesia Cardiac Studies: No Data to Display
--- NOTE | 2024-08-21 07:29 | W.PM.OPSUD ---
Surgery/Procedure H&P Update DATE OF PROCEDURE: August 21, 2024 DATE H&P PERFORMED: 08/21/24 H&P UPDATE INFORMATION: I have reviewed H&P completed within last 30 days, I have examined patient prior to procedure and No changes to prior documentation PREOP DIAGNOSIS: desires permanent sterilization; wants removal of intrauterine device PLANNED PROCEDURE: Operation Date: 08/21/24 08:10 Proposed Procedures p Laparoscopic bilateral partial salpingectomy [id number], Z30.2(Bilateral) - Alex Vyas MD s Removal Of Interuterine Device(Not Applicable) - Alex Vyas MD
--- NOTE | 2024-08-21 09:50 | P.OP_ITS ---
Operative Report Date of procedure: August 21, 2024 Pre-op diagnosis: desires permanent sterilization wants removal of intrauterine device Post-op diagnosis: same Post-op findings: Intrauterine device removed complete and intact, discarded normal uterus, tubes, and ovaries Procedure done: Removal of intrauterine device laparoscopic bilateral salpingectomy Implants: none Specimens removed/disposition: bilateral fallopian tube segments Intrauterine device removed complete and intact, discarded Surgeon: Alex Vyas MD Anesthesia: General Estimated blood loss (mL): 5 Complications: none Findings: Intrauterine device removed complete and intact, discarded normal uterus, tubes, and ovaries Condition: stable Disposition: PACU Brief History: 34 y.o. desires permanent sterilization and removal of IUD Procedure: Informed consent was obtained. The patient was taken to the OR and placed on the table. General endotracheal anesthesia was induced. A speculum was placed in the vagina. The IUD string was visualized. The IUD was removed complete and intact, then discarded. The abdomen was then prepped and draped in the usual fashion. A 5 mm subumbilical skin incision was made. A 5 mm trocar with sheath was then inserted into the peritoneal cavity under direct visualization with the laparoscope. After confirming intraperitoneal position, pneumoperitoneum was achieved. Two separate 5 mm incisions were made in the right and left mid- quadrants. 5 mm trocars with sheaths were then inserted into the peritoneal cavity under direct visualization with the laparoscope. The right fallopian tube was then identified to its fimbrial end. Starting at the fimbrial end, the mesosalpinx was then coagulated and cut using the Ligasure. The right fallopian tube was excised and removed via one of the ports. This was sent to pathology. There was no bleeding seen. Similarly, the left fallopian tube was identified to its fimbrial end. The left fallopian tube was excised and removed, sent to pathology. There was no bleeding. All instruments were then removed from the peritoneal cavity after the pneu moperitoneum was allowed to escape. The skin incisions were closed using 3-O chromic in subcuticular fashion. Dermabond was applied. The patient was then placed supine and awakened, taken the the PACU in good condition. Postop condition: stable EBL: 5 cc Complications: none Sponge, needles, and instruments counts correct x two
--- NOTE | 2024-08-21 12:26 | P.ANESPOST_ITS ---
Inpatient post-anesthesia follow up: Vital signs: Temperature 97.3 F Pulse Rate 79 Respiratory Rate 18 Blood Pressure 116/61 Pulse Oximetry 98 Oxygen Delivery Me thod Room Air Oxygen Flow Rate Fraction of Inspir ed Oxygen Hydration adequate: Yes Nausea and vomiting: No Pain level: Con trolled Mental status: Baseline
== END 2024-08-21 10:15 | disposition home or self-care (01) ==
PROVIDERS: Anesthesiology; PCP Nurse Practitioner Family; Visit Provider Obstetrics & Gynecology
PROC: (CPT 58661; principal; 2024-08-21 08:00)
PROC: (CPT 58301; 2024-08-21 08:00)
DX: Z30.2 Encounter for sterilization (principal); E07.9 Disorder of thyroid, unspecified; Z79.890 Hormone replacement therapy; Z30.432 Encounter for removal of intrauterine contraceptive device
CPT/HCPCS: 58661; 58301; 81025; 88302; A4216; J1100; J1171; J2250; J2371; J2405; J2704; J3010; J3490; J7030; J9999

== ENCOUNTER → 2025-03-26 08:24 | Outpatient (BNVA) | payer MEDICAID, SELFPAY | PROVIDERS: PCP Nurse Practitioner Family; Visit Provider Obstetrics & Gynecology | DX: N92.0 Excessive and frequent menstruation with regular cycle (principal) | CPT/HCPCS: 76830 ==

== ENCOUNTER → 2025-04-11 13:38 | Outpatient (BNVA) | payer MEDICAID, SELFPAY | PROVIDERS: PCP Nurse Practitioner Family; Visit Provider Obstetrics & Gynecology | DX: Z12.4 Encounter for screening for malignant neoplasm of cervix (principal); Z30.430 Encounter for insertion of intrauterine contraceptive device; N92.0 Excessive and frequent menstruation with regular cycle | CPT/HCPCS: 81025; 87624; 88305 ==